=== PATIENT | female | born 1975 | race African-American/Black ===

== ENCOUNTER 2018-08-16 11:22 | Emergency (ER) | payer MEDICAID, OTHER ==
[~2018-08-16] VITALS: Ht 177.8 cm; Wt 104.3 kg
[~2018-08-16 11:22] MED LIST: CYCLOBENZAPRINE10 MG ORAL; IBUPROFEN600 MG ORAL; NKM; ROBAXIN-750750 MG PO
--- NOTE | 2018-08-16 11:30 | NUR ---
ED Nurse Note: Pt came into the ER w/ complaints of sore throat x 4 days. Complaining of 6/10 throat pain. Non radiating. Pt is also complaining of burning feeling in bilateral ears. A + O x4. Ambulatory. Skin warm to touch.
[2018-08-16 11:32] VITALS: BP 105/77
[2018-08-16] MEDS ORDERED: AMOXICILLIN500 MG ORAL (11:45)
[2018-08-16] MEDS ORDERED: IBUPROFEN600 MG ORAL (11:45)
[2018-08-16 11:48] VITALS: BP 120/74
--- NOTE | 2018-08-16 11:49 | NUR ---
ED Nurse Note: Discharge instructions given to pt. Answered all questions. Verbalized understanding. No acute distress noted. ID band removed. Left ER w/ all belongings and w/ a steady gait.
--- NOTE | 2018-08-16 12:39 | Emergency Room Report ---
History of Present Illness General Chief Complaint: Sore Throat Source: Patient Present Illness HPI Patient presents emergency department today complaining of a sore throat. Patient states that she has sore throat for a couple days. She denies any fever chest pain shortness breath but she does complain of subjective fevers and chills. She denies any runny nose cough nausea vomiting or diarrhea. Symptoms noted to be moderate. Patient has had a history of strep throat in the past.No other modifying factors. No other associated signs and symptoms. No other complaints were noted. Allergies: Coded Allergies: No Known Allergies (Unverified , 06/25/16) Patient History Past Medical History: none Past Surgical History: none Pertinent Family History: none Social History: Denies: smoking, alcohol use, drug use Now: No Reviewed Nursing Documentation: PMH: Agreed; PSxH: Agreed Nursing Documentation-PMH Past Medical History: No Stated History Review of Systems All Other Systems: negative except mentioned in HPI Physical Exam Vital Signs Date Time Temp Pulse Resp B/P (MAP) Pulse Ox O2 Delivery O2 Flow Rate FiO2 08/16/18 11:26 98.2 82 20 108/64 96 Room Air Sp02 EP Interpretation: reviewed, normal General Appearance: normal inspection, well appearing, no apparent distress, alert Head: atraumatic Eyes: bilateral eye normal inspection ENT: hearing grossly normal, normal voice, tonsillar swelling, pharyngeal erythema, tonsillar exudate Neck: normal inspection, full range of motion, supple, no bony tend Respiratory: normal inspection, lungs clear, normal breath sounds, no respiratory distress, no retraction, no wheezing Cardiovascular #1: regular rate, rhythm, no edema Gastrointestinal: normal inspection, normal bowel sounds, non tender, soft, no guarding, no hernia Genitourinary: no CVA tenderness Musculoskeletal: normal inspection, back normal, normal range of motion Neurologic: normal inspection, alert, responsive, speech normal Psychiatric: normal inspection, judgement/insight normal, mood/affect normal Skin: normal inspection, normal color, no rash Medical Decision Making Diagnostic Impression: Primary Impression: Sore throat ER Course Patient presents emergency department today complaining of sore throat. Differential considerations include pharyngitis, viral pharyngitis, strep throat , peritonsillar abscess, postnasal drip just to name a few. Patient's exam is consistent with pharyngitis. Patient was given a prescription for antibiotics.Patient is advised to follow up with primary doctor in 2-3 days and return the emergency room for any worsening symptoms and as needed. Last Vital Signs Date Time Temp Pulse Resp B/P (MAP) Pulse Ox O2 Delivery O2 Flow Rate FiO2 08/16/18 11:48 98.0 78 22 120/74 98 Room Air Status: improved Disposition: HOME, SELF-CARE Condition: Stable Scripts Ibuprofen* (MOTRIN*) 600 Mg Tablet 600 MG ORAL Q8H PRN for For Pain, #30 TAB 0 Refills Prov: Jb Tucker MD 08/16/18 Amoxicillin* (AMOXIL*) 500 Mg Capsule 500 MG ORAL THREE TIMES A DAY, #30 CAP Prov: Jb Tucker MD 08/16/18 Referrals: NOT CHOSEN [facility]/,REFERRING (PCP) Patient Instructions: Tonsillitis Jb Tucker MD Aug 16, 2018 12:39
[2018-10-10] MEDS ORDERED: CHLOR-TRIMETON4 MG PO ×2 (21:32)
[2018-10-10] MEDS ORDERED: ROBITUSSIN NIG237 ML PO ×2 (21:32)
[2018-10-10] MEDS ORDERED: AFRIN NASAL SPR30 ML NASAL ×2 (21:32)
[2019-05-12] MEDS ORDERED: IBUPROFEN600 MG ORAL (15:32)
[2019-05-12] MEDS ORDERED: LIDODERM700 M1 TOPIC (15:32)
== END 2018-08-16 11:49 | disposition home or self-care (01) ==
LOC: EMR 11:46
DX: J02.9 Acute pharyngitis, unspecified (principal)
CPT/HCPCS: 99282

== ENCOUNTER 2018-10-10 19:41 | Emergency (ER) | payer MEDICAID ==
[~2018-10-10] VITALS: Ht 177.8 cm; Wt 106.6 kg
[~2018-10-10 19:41] MED LIST changes: +AMOXICILLIN500 MG ORAL
[2018-10-10 20:16] VITALS: BP 113/67
--- NOTE | 2018-10-10 20:17 | NUR ---
ED Nurse Note: pt walked in c/o cough and tightness in chest x 4 days, pt states his father was recently dx TB and was concerned she might have one. pt denies cp/sob/li/nightsweat/chills/fever/loss of appetite. Pt AA&ox4, gcs=15, skin warm and dry, normal skin sx, resp even and unlabored on RA, LS=clear, -n/v/d, ambulates w/ steady gait, will cont monitor. vss.
--- NOTE | 2018-10-10 20:40 | NUR ---
ED Nurse Note: CONTACTED PHARMACY FOR PPD.
--- NOTE | 2018-10-10 20:40 | Emergency Room Report ---
History of Present Illness General Chief Complaint: Flu Like Symptoms Source: Patient Present Illness HPI Patient presents with 4 days of upper respiratory symptoms. She has congestion , sore throats and cough. She has not heard herself wheezing. She's on the second to last day of his azithromycin Z-Lalo. She denies night sweats others weight loss. The cough is nonproductive. Cough not keeping her awake at night. Her father is in the hospital for 2 weeks. The family was recently been told that he has VRE and tuberculosis. Family was advised to throw away clothes they used for visits. The patient last had a skin test when she was a child. No dysuria, diarrhea, chest pain, rashes, joint pain, headaches. Not . Allergies: Coded Allergies: No Known Allergies (Unverified , 10/10/18) Patient History Past Medical History: see triage record Social History: Denies: smoking Social History Narrative with children Last Menstrual Period: 09-18-2018 Now: No Reviewed Nursing Documentation: PMH: Agreed; PSxH: Agreed Nursing Documentation-PMH Past Medical History: No Stated History Review of Systems All Other Systems: negative except mentioned in HPI Physical Exam Vital Signs Date Time Temp Pulse Resp B/P (MAP) Pulse Ox O2 Delivery O2 Flow Rate FiO2 10/10/18 19:53 98.2 115/70 10/10/18 20:12 77 18 Room Air 10/10/18 20:16 100 Sp02 EP Interpretation: reviewed, normal General Appearance: well appearing, no apparent distress, GCS 15 Head: normocephalic Eyes: bilateral eye normal inspection, bilateral eye PERRL ENT: normal voice, TMs + canals normal, moist mucus membranes, pharyngeal erythema, other - Nasal congestion Neck: supple, no meningismus Respiratory: lungs clear, normal breath sounds, other - Occasional cough Cardiovascular #1: regular rate, rhythm Cardiovascular #2: 2+ radial (R) Gastrointestinal: normal inspection, normal bowel sounds, non tender, no mass, non-distended Musculoskeletal: back normal, gait/station normal, normal range of motion Neurologic: alert, oriented x3, grossly normal Psychiatric: mood/affect normal Skin: normal inspection, warm/dry Medical Decision Making Diagnostic Impression: Primary Impression: Upper respiratory infection Qualified Codes: J06.9 - Acute upper respiratory infection, unspecified ER Course Patient presents with upper respiratory symptomatology and being exposed to tuberculosis. Differential includes influenza, bronchitis, viral upper respiratory infection amongst others. Consideration of tuberculosis is there however the presentation is atypical. She's artery on antibiotics at this time. She's not wheezing. A chest x-ray will be obtained and also a skin test will be placed. Patient declines any other treatment at this time. Chest x-ray no infiltrate. Review of records of her father. There is no evidence of tuberculosis. The patient has VRE and Klebsiella pneumonia. Discussed findings with patient. She understands treatment plan. She will have her skin test read by her private doctor in 2 days. Patient stable for outpatient observation and treatment. Chest X-Ray Diagnostic Results Chest X-Ray Diagnostic Results : Chest X-Ray Ordered: Yes # of Views/Limited/Complete: 1 View Indication: Other EP Interpretation: Yes Interpretation: no consolidation, no effusion, no pneumothorax Impression: No acute disease Electronically Signed by: Electronically signed by Mike Macdonald MD Last Vital Signs Date Time Temp Pulse Resp B/P (MAP) Pulse Ox O2 Delivery O2 Flow Rate FiO2 10/10/18 21:34 98.2 75 18 110/60 100 Room Air Status: unchanged Disposition: HOME, SELF-CARE Condition: Stable Scripts Oxymetazoline HCl (Afrin) 15 Ml [place] 2 SPRAY NASAL TWICE A DAY for nasal congestion, #10 ML Prov: Mike Macdonald MD 10/10/18 Dextromethorphan Hb/Doxylamine (ROBITUSSIN NIGHTTIME COUGH DM) 237 Ml Liquid 5 ML PO Q6HR PRN for cough or congestion, #60 ML Prov: Mike Macdonald MD 10/10/18 Chlorpheniramine Maleate (CHLOR-TRIMETON) 4 Mg Tablet 4 MG PO Q6HR PRN for congestion, #10 TAB Prov: Mike Macdonald MD 10/10/18 Mike Macdonald MD Oct 10, 2018 20:40
[2018-10-10] MEDS ORDERED: PPD Tuberculin Skin Test 5TU IDERMAL ONE (20:45)
--- NOTE | 2018-10-10 21:08 | Diagnostic Imaging Report ---
EXAM: XR Chest, 1 View CLINICAL HISTORY: COUGH TECHNIQUE: Frontal view of the chest. COMPARISON: No relevant prior studies available. FINDINGS: Lungs: Unremarkable. No consolidation. Pleural space: Unremarkable. No pneumothorax. Heart: Unremarkable. No cardiomegaly. Mediastinum: Unremarkable. Bones/joints: Unremarkable. IMPRESSION: Normal chest x-ray.
[2018-10-10] MEDS ORDERED: ROBITUSSIN NIG237 ML PO (21:32)
[2018-10-10] MEDS ORDERED: CHLOR-TRIMETON4 MG PO (21:32)
[2018-10-10] MEDS ORDERED: AFRIN NASAL SPR30 ML NASAL (21:32)
[2018-10-10 21:34] VITALS: BP 110/60
--- NOTE | 2018-10-10 21:35 | NUR ---
ED Nurse Note: pt cleared to be d/c per ERMD, pt d/c &aftercare instruction provided w/ prescription, pt education done via discussion and handout, pt advised to follow up with pcp or return to ed if sx worsen or new sx develop, pt verbalized understanding and agrees with plan. pt vss, ambulatory w/ steady gait, left w/ all belongings.
== END 2018-10-10 21:34 | disposition home or self-care (01) ==
LOC: EMR 20:41
DX: J06.9 Acute upper respiratory infection, unspecified (principal); Z20.1 Contact with and (suspected) exposure to tuberculosis
CPT/HCPCS: 71045; 86580; 99283

== ENCOUNTER 2018-12-16 19:33 | Emergency (ER) | payer MEDICAID ==
[~2018-12-16] VITALS: Ht 177.8 cm; Wt 106.6 kg
[~2018-12-16 19:33] MED LIST changes: +AFRIN NASAL SPR30 ML NASAL; +CHLOR-TRIMETON4 MG PO; +ROBITUSSIN NIG237 ML PO
[2018-12-16] MEDS ORDERED: NEOMYCIN-POLYMY10 M1 OT (19:40)
[2018-12-16] MEDS ORDERED: CIPROFLOXACIN500 M2 ORAL (19:40)
--- NOTE | 2018-12-16 19:43 | NUR ---
ED Nurse Note: technical writer @ beside awaiting pt to finish using restroom to perform EKG
[2018-12-16 19:45] VITALS: BP 117/79
--- NOTE | 2018-12-16 19:45 | NUR ---
ED Nurse Note: Pt arrived ambulatory into ED for complaint of left sided chest pain that radiates to shoulder lasting for approximately 3 days. Pt states pain is substernal, feeling like pressure and causing difficulty of breathing. Pt has been taking aspirin q4hrs for discomfort.
[2018-12-16] MEDS: Ketorolac 30mg Inj IV ONE ×2 (20:01→20:18)
[2018-12-16 20:11] LABS: APPEARANCE,URINE CLEAR; BILIRUBIN, URINE NEGATIVE (NEGATIVE); COLOR,URINE PALE YELLOW; GLUCOSE, URINE (UA) NEGATIVE (NEGATIVE); KETONES,URINE NEGATIVE (NEGATIVE); LEUKOCYTE ESTERASE ,URINE NEGATIVE (NEGATIVE); NITRITE,URINE NEGATIVE (NEGATIVE); PH,URINE 6.5 (4.5-8.0); PROTEIN,URINE NEGATIVE (NEGATIVE); UROBILINOGEN,URINE NORMAL MG/DL (0.0-1.0)
--- NOTE | 2018-12-16 20:14 | Emergency Room Report ---
History of Present Illness General Chief Complaint: Chest Pain Source: Patient Present Illness HPI Patient presents with left-sided posterior chest pain rating up to her shoulder. This been going on for 3 days. She's been taking aspirin every 4 hours. She feels nauseated at this time. There is no ringing in her ears. It radiates somewhat anteriorly and up into the shoulder. She denies any cough or shortness of breath. It's pleuritic and positional. She also feels hot flashes. She reports pain 2/10 at this time. She was seen 2 weeks ago and prescribed ciprofloxacin. She is completed this antibiotic. Her physician suggested this might be an upper respiratory infection related to allergies. The patient denies any calf pain or edema. She's not taking control. She does not smoke. There is no diabetes or hypertension and no family history of early cardiac disease. No vomiting or change in bowels. No dysuria or rashes. No other medications aside from the aspirin. Father 12/05 - was in Hospice. Very sad over loss. Seen 10/10 with concern over VRE and Tb exposure. 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 Last Menstrual Period: 12/08/18 Now: No Reviewed Nursing Documentation: PMH: Agreed; PSxH: Agreed Nursing Documentation-PMH Past Medical History: No Stated History Review of Systems All Other Systems: negative except mentioned in HPI Physical Exam Vital Signs Date Time Temp Pulse Resp B/P (MAP) Pulse Ox O2 Delivery O2 Flow Rate FiO2 12/16/18 19:36 97.7 87 18 117/79 (92) 99 Room Air Sp02 EP Interpretation: reviewed, normal General Appearance: well appearing, no apparent distress, GCS 15 Head: normocephalic Eyes: bilateral eye normal inspection, bilateral eye PERRL ENT: moist mucus membranes Neck: supple Respiratory: lungs clear, normal breath sounds, other - No anterior chest wall tenderness. Muscle spasm and pain retreated by palpation left medial scapular muscle groups Cardiovascular #1: regular rate, rhythm, no edema Cardiovascular #2: 2+ radial (R) Gastrointestinal: normal inspection, normal bowel sounds, non tender, no mass, non-distended, overweight Musculoskeletal: back normal - see chest, gait/station normal, normal range of motion, no calf tenderness, Nicole's Sign negative Neurologic: alert, oriented x3, grossly normal Psychiatric: anxious Skin: normal inspection, warm/dry Medical Decision Making Diagnostic Impression: Primary Impression: Muscle spasm Additional Impressions: Chest pain Qualified Codes: R07.89 - Other chest pain Grief reaction Leukocytosis Qualified Codes: D72.828 - Other elevated white blood cell count ER Course Patient presents with left-sided posterior chest pain. Differential includes PE , acute myocardial infarction, pleurisy, muscle spasm, viral syndrome amongst others. Patient be evaluated with EKG, chest x-ray and labs. Based on vital signs pulmonary embolus is extremely unlikely. Also cardiac risk factors are low. EKG is normal sinus rhythm with normal EKG rate 67. Chest x-ray clear no infiltrates. Labs with leukocytosis no left shift. CMP normal. Salicylate 9.0. Patient refused Toradol. Reconsidered medication. Motrin given. Discussed results with patient. She is relieved about these results. She is quite tearful about the loss of her father. Discussed the possibility of seeking great support. Also discussed leukocytosis and the need for follow-up with her own doctor. Patient stable for outpatient observation and treatment. Laboratory Tests Test 12/16/18 19:49 12/16/18 20:13 Urine Color Pale yellow Urine Appearance Clear Urine pH 6.5 (4.5-8.0) Urine Specific [place] 1.015 (1.005-1.035) Urine Protein Negative (NEGATIVE) Urine Glucose (UA) Negative (NEGATIVE) Urine Ketones Negative (NEGATIVE) Urine Blood 1+ (NEGATIVE) H Urine Nitrite Negative (NEGATIVE) Urine Bilirubin Negative (NEGATIVE) Urine Urobilinogen Normal MG/DL (0.0-1.0) Urine Leukocyte Esterase Negative (NEGATIVE) Urine RBC 2-4 /HPF (0 - 2) H Urine WBC 0-2 /HPF (0 - 2) Urine Squamous Epithelial Cells Few /LPF (NONE/OCC) Urine Bacteria Few /HPF (NONE) Urine HCG, Qualitative Negative (NEGATIVE) White Blood Count 12.9 K/UL (4.8-10.8) H Red Blood Count 4.55 M/UL (4.20-5.40) Hemoglobin 13.0 G/DL (12.0-16.0) Hematocrit 38.1 % (37.0-47.0) Mean Corpuscular Volume 84 FL (80-99) Mean Corpuscular Hemoglobin 28.6 PG (27.0-31.0) Mean Corpuscular Hemoglobin Concent 34.2 G/DL (32.0-36.0) Red Cell Distribution Width 11.6 % (11.6-14.8) Platelet Count 257 K/UL (150-450) Mean Platelet Volume 6.8 FL (6.5-10.1) Neutrophils (%) (Auto) 60.7 % (45.0-75.0) Lymphocytes (%) (Auto) 30.6 % (20.0-45.0) Monocytes (%) (Auto) 5.4 % (1.0-10.0) Eosinophils (%) (Auto) 1.5 % (0.0-3.0) Basophils (%) (Auto) 1.8 % (0.0-2.0) Prothrombin Time 10.0 SEC (9.30-11.50) Prothrombin Time INR 0.9 (0.9-1.1) PTT 27 SEC (23-33) Sodium Level 138 MMOL/L (136-145) Potassium Level 4.2 MMOL/L (3.5-5.1) Chloride Level 104 MMOL/L (98-107) Carbon Dioxide Level 26 MMOL/L (21-32) Anion Gap 8 mmol/L (5-15) Blood Urea Nitrogen 18 mg/dL (7-18) Creatinine 1.0 MG/DL (0.55-1.30) Estimate Glomerular Filtration Rate > 60 mL/min (>60) Glucose Level 102 MG/DL (74-106) Calcium Level 8.9 MG/DL (8.5-10.1) Total Bilirubin 0.2 MG/DL (0.2-1.0) Aspartate Amino Transferase (AST) 10 U/L (15-37) L Alanine Aminotransferase (ALT) 20 U/L (12-78) Alkaline Phosphatase 78 U/L (46-116) Total Creatine Kinase 42 U/L (26-308) Troponin I 0.000 ng/mL (0.000-0.056) Total Protein 7.2 G/DL (6.4-8.2) Albumin 3.6 G/DL (3.4-5.0) Globulin 3.6 g/dL Albumin/Globulin Ratio 1.0 (1.0-2.7) Salicylates Level 9.0 ug/mL (2.8-20) EKG Diagnostic Results Rate: normal Rhythm: NSR ST Segments: no acute changes Rhythm Strip Diag. Results EP Interpretation: yes Rhythm: NSR, no PVC's, no ectopy Chest X-Ray Diagnostic Results Chest X-Ray Diagnostic Results : Chest X-Ray Ordered: Yes # of Views/Limited/Complete: 1 View Indication: Chest Pain EP Interpretation: Yes Interpretation: no consolidation, no effusion, no pneumothorax Impression: No acute disease Electronically Signed by: Electronically signed by Mike Macdonald MD Last Vital Signs Date Time Temp Pulse Resp B/P (MAP) Pulse Ox O2 Delivery O2 Flow Rate FiO2 12/16/18 22:28 98.3 79 14 128/79 99 Room Air Status: improved Disposition: HOME, SELF-CARE Condition: Improved Scripts Methocarbamol* (ROBAXIN*) 500 Mg Tablet 500 MG PO TID, #10 TAB 0 Refills Prov: Mike Macdonald MD 12/16/18 Tramadol Hcl* (ULTRAM*) 50 Mg Tablet 50 MG ORAL Q6H PRN for For Pain, #10 TAB 0 Refills Prov: Mike Macdonald MD 12/16/18 Ibuprofen* (MOTRIN*) 600 Mg Tablet 600 MG ORAL Q6H PRN for For Pain, #20 TAB 0 Refills Prov: Mike Macdonald MD 12/16/18 Referrals: [facility],REFERRING (PCP) Mike Macdonald MD December 16, 2018 20:14
--- NOTE | 2018-12-16 20:18 | NUR ---
ED Nurse Note:ED Nurse Note: Pt refused toradol last minute. 0.5 ml drawn in syringe and vial wasted and discarded. Witnessed by MOY Jordan.
[2018-12-16 20:34] LABS: BASOPHILS % (AUTO) 1.8 % (0.0-2.0); EOSINOPHILS % (AUTO) 1.5 % (0.0-3.0); HEMATOCRIT 38.1 % (37.0-47.0); LYMPHOCYTES % (AUTO) 30.6 % (20.0-45.0); MEAN CORPUSCULAR VOLUME 84 FL (80-99); MONOCYTES % (AUTO) 5.4 % (1.0-10.0); NEUTROPHILS % (AUTO) 60.7 % (45.0-75.0); PLATELET COUNT 257 K/UL (150-450); RED BLOOD COUNT 4.55 M/UL (4.20-5.40); RED CELL DISTRIBUTION WIDTH 11.6 % (11.6-14.8); WHITE BLOOD COUNT 12.9 K/UL (4.8-10.8)
[2018-12-16 20:41] LABS: INR 0.9 (0.9-1.1)
[2018-12-16 20:51] LABS: ANION GAP 8 mmol/L (5-15); BLOOD UREA NITROGEN 18 mg/dL (7-18); CALCIUM 8.9 MG/DL (8.5-10.1); CARBON DIOXIDE 26 MMOL/L (21-32); CHLORIDE 104 MMOL/L (98-107); POTASSIUM 4.2 MMOL/L (3.5-5.1); SODIUM 138 MMOL/L (136-145)
[2018-12-16 20:56] LABS: ALANINE AMINOTRANSFERASE 20 U/L (12-78); ALBUMIN 3.6 G/DL (3.4-5.0); ALKALINE PHOSPHATASE 78 U/L (46-116); ASPARTATE AMINO TRANSFERASE 10 U/L (15-37); BILIRUBIN,TOTAL 0.2 MG/DL (0.2-1.0); CREATINE KINASE 42 U/L (26-308)
--- NOTE | 2018-12-16 21:40 | NUR ---
ED Nurse Note: Pt resting comfortably. Showing no signs of acute distress. VSS. Will continue to monitor.
[2018-12-16] MEDS ORDERED: ROBAXIN500 MG PO ×2 (22:15)
[2018-12-16] MEDS ORDERED: TRAMADOL HCL50 MG ORAL (22:15)
[2018-12-16] MEDS ORDERED: IBUPROFEN600 MG ORAL ×2 (22:15)
[2018-12-16 22:28] VITALS: BP 128/79
--- NOTE | 2018-12-16 22:30 | NUR ---
ED Nurse Note: Pt cleared by . Pt A/Ox4, showing no signs of acute distress. VSS. Discharge paperwork and prescrptions provided. Pt verbalized understanding of all instructions. All belongings taken with pt. ID band and IV removed. Pt ambulted out of ED with steady gait.
--- NOTE | 2018-12-17 12:06 | Diagnostic Imaging Report ---
Indication: Chest pain Comparison: 10/10/2018 A single view chest radiograph was obtained. Findings: Cardiomediastinal appearance is within normal limits for age. The lungs are clear. Pulmonary vascularity is appropriate. The diaphragmatic contour is smooth and costophrenic angles are sharp. No pleural effusions are identified. The bones are unremarkable. Impression: No acute findings
--- NOTE | 2018-12-18 15:28 | Cardiology Report ---
APPROVED REPORT EKG Measurement Heart [id number] Normal sinus rhythm Normal ECG
[2019-05-12] MEDS ORDERED: IBUPROFEN600 MG ORAL (15:32)
[2019-05-12] MEDS ORDERED: LIDODERM700 M1 TOPIC (15:32)
== END 2018-12-16 22:28 | disposition home or self-care (01) ==
LOC: EMR 19:48
DX: R07.89 Other chest pain (principal); F43.20 Adjustment disorder, unspecified; D72.828 Other elevated white blood cell count; M62.838 Other muscle spasm; R11.0 Nausea
CPT/HCPCS: 36415; 71045; 80053; 80329; 81003; 81025; 82550; 84484; 85025; 85610; 85730; 93005; 99283

== ENCOUNTER 2019-03-18 12:54 | Emergency (ER) | payer MEDICAID, OTHER ==
[~2019-03-18] VITALS: Ht 177.8 cm; Wt 105.2 kg
[~2019-03-18 12:54] MED LIST changes: +CIPROFLOXACIN500 M2 ORAL; +NEOMYCIN-POLYMY10 M1 OT; +ROBAXIN500 MG PO; +TRAMADOL HCL50 MG ORAL
--- NOTE | 2019-03-18 13:20 | NUR ---
ED Nurse Note: Patient presents to ER due to right sole pain, medial aspect x 3 weeks. Patient usually wear flat sandals. Patient had long hiking ~ 7miles 4 weeks ago. Cap refill < 3 sec. + dorsal pedis pulse palated on right foot. No swelling or redness noted. Patient ambulated to the room with steady gait.
--- NOTE | 2019-03-18 13:28 | Emergency Room Report ---
History of Present Illness General Chief Complaint: Lower Extremity Injury Source: Patient Present Illness HPI 44-year-old female with no significant past medical history here complaining of 3 weeks of pain without any injury in the right foot. Patient reports that she used to wear a lot of high heels however has switched to flat shoes recently. Patient reports that she is often on her feet a lot during the day and feels the pain mostly when she wakes up in the morning and the pain gets better upon walking. At this time rates the pain 3 out of 10 with radiation to toes denies tingling or numbness. Denies any direct fall or injury. Denies calf tenderness , chest pain, shortness of breath, palpitation, and other associated symptoms. Has not taken medication for pain relief. Allergies: Coded Allergies: No Known Allergies (Unverified , 10/10/18) Patient History Past Medical History: see triage record Past Surgical History: unable to obtain Pertinent Family History: none Last Menstrual Period: 03/01/19 Now: No Immunizations: UTD Reviewed Nursing Documentation: PMH: Agreed; PSxH: Agreed Nursing Documentation-PMH Past Medical History: No Stated History Review of Systems All Other Systems: negative except mentioned in HPI Physical Exam Vital Signs Date Time Temp Pulse Resp B/P (MAP) Pulse Ox O2 Delivery O2 Flow Rate FiO2 03/18/19 12:59 98.2 81 18 113/61 (78) 96 Room Air Sp02 EP Interpretation: reviewed, normal General Appearance: no apparent distress, alert, GCS 15, non-toxic Head: normocephalic, atraumatic Eyes: bilateral eye normal inspection, bilateral eye PERRL ENT: hearing grossly normal, normal pharynx, no angioedema, normal voice Neck: full range of motion, supple/symm/no masses Respiratory: chest non-tender, lungs clear, normal breath sounds, speaking full sentences Cardiovascular #1: normal inspection, regular rate, rhythm, no murmur Cardiovascular #2: 2+ dorsalis pedis (R), 2+ dorsalis pedis (L) Gastrointestinal: normal bowel sounds, non tender, soft, non-distended, no guarding, no rebound Genitourinary: no CVA tenderness Musculoskeletal: normal inspection, back normal, digits/nails normal, gait/ station normal, non-tender Neurologic: alert, oriented x3, responsive, motor strength/tone normal, sensory intact, speech normal Psychiatric: judgement/insight normal, memory normal, mood/affect normal, no suicidal/homicidal ideation Skin: no rash Lymphatic: no adenopathy Medical Decision Making PA Attestation All my diagnosis and treatment plans were reviewed ad discussed with my supervising physician Dr. Martines Diagnostic Impression: Primary Impression: Plantar fasciitis of right foot ER Course 44-year-old female with no significant past medical history here complaining of 3 weeks of pain without any injury in the right foot. Patient reports that she used to wear a lot of high heels however has switched to flat shoes recently. Patient reports that she is often on her feet a lot during the day and feels the pain mostly when she wakes up in the morning and the pain gets better upon walking. At this time rates the pain 3 out of 10 with radiation to toes denies tingling or numbness. Denies any direct fall or injury. Denies calf tenderness , chest pain, shortness of breath, palpitation, and other associated symptoms. Has not taken medication for pain relief. Ddx considered but are not limited to: foot fracture, foot sprain, foot contusion, foot strain, spare, fasciitis Vital signs: are WNL, pt. is afebrile H&PE are most consistent with: Plantar fasciitis ORDERS: foot Xray , Voltaren gel, Motrin ED INTERVENTIONS: None required at this time. DISCHARGE: At this time pt. is stable for d/c to home. Will provide printed patient care instructions, and any necessary prescriptions. Care plan and follow up instructions have been discussed with the patient prior to discharge. I advised the patient to follow-up with her primary care provider for referral to clock mechanic if needed symptoms return to the emergency room Other X-Ray Diagnostic Results Other X-Ray Diagnostic Results : X-Ray ordered: Right foot # of Views/Limited Vs Complete: 3 View Indication: Pain EP Interpretation: Yes JAMMIE Xray: Interpretation reviewed, by supervising MD, and agrees with findings. Interpretation: no dislocation, no soft tissue swelling, no fractures Impression: No acute disease Electronically Signed by: Vishal Frey PA-C Last Vital Signs Date Time Temp Pulse Resp B/P (MAP) Pulse Ox O2 Delivery O2 Flow Rate FiO2 03/18/19 12:59 98.2 81 18 113/61 (78) 96 Room Air Disposition: HOME, SELF-CARE Condition: Stable Scripts Diclofenac Sodium (VOLTAREN) 100 Gm Gel..gram. 2 GM TP TID, #100 GM Prov: Vishal Payne 03/18/19 Ibuprofen* (MOTRIN*) 600 Mg Tablet 600 MG ORAL Q8H PRN for For Pain, #30 TAB 0 Refills Prov: Vishal Payne 03/18/19 Patient Instructions: Plantar Fasciitis Vishal Payne Mar 18, 2019 13:28
[2019-03-18] MEDS ORDERED: IBUPROFEN600 MG ORAL (13:29)
[2019-03-18] MEDS ORDERED: VOLTAREN100 G1 TP (13:30)
[2019-03-18 13:38] VITALS: BP 121/71
--- NOTE | 2019-03-18 13:39 | NUR ---
ER DISCHARGE NOTE: Patient is cleared to be discharged per ERMD, pt is aox4, on room air, with stable vital signs. pt was given dc and prescription instructions, pt was able to verbalize understanding, pt id band removed without complications. pt is able to ambulate with steady gait. pt took all belongings.
--- NOTE | 2019-03-18 15:51 | Diagnostic Imaging Report ---
Indication: Right foot pain Technique: 3 views right foot Comparison: none Findings: No acute fractures. No dislocations. The joint spaces are preserved. Impression: Negative
== END 2019-03-18 14:00 | disposition home or self-care (01) ==
LOC: EMR 13:31
DX: M72.2 Plantar fascial fibromatosis (principal)
CPT/HCPCS: 99283

== ENCOUNTER 2019-04-29 13:45 | Emergency (ER) | payer MEDICAID, OTHER ==
[~2019-04-29] VITALS: Ht 177.8 cm; Wt 108.0 kg
[~2019-04-29 13:45] MED LIST changes: +VOLTAREN100 G1 TP
[2019-04-29 14:02] VITALS: BP 117/66
[2019-04-29] MEDS ORDERED: NKM (14:05)
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
[2019-04-29] MEDS ORDERED: Ketorolac 60mg Inj IM ONE (15:15)
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
--- NOTE | 2019-04-29 17:34 | Diagnostic Imaging Report ---
Indication: Head trauma headache Technique: Contiguous 5 mm thick transaxial imaging of the head obtained in a Siemens Sensation [address] scanner. Soft tissue and bone windows generated. Automatic Exposure Control was utilized. Total Dose length Product (DLP): [address] Dose Index Volume (CTDIvol): 62.7 mGy Comparison: none Findings: The size and configuration of the cortical sulci, basal cisterns, and ventricles are within normal limits for age. There is no mass effect, midline shift, or edema identified. Cystic focus in the left basal ganglia region noted likely a prominent perivascular space. There is no evidence of acute hemorrhage or abnormal intra-axial or extra-axial fluid collections. The bones and soft tissues are unremarkable. Impression: No mass effect, edema or acute bleed. [facility] has communicated the preliminary results to the Emergency Department. Their findings are largely concordant with this report. The CT scanner at [facility] is accredited by the [employer] and the scans are performed using dose optimization techniques as appropriate to a performed exam including Automatic Exposure control.
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
[2019-04-29] MEDS ORDERED: IBUPROFEN600 MG ORAL (18:15)
[2019-04-29] MEDS ORDERED: CYCLOBENZAPRINE10 MG ORAL ×2 (18:15)
[2019-04-29 18:20] VITALS: BP 117/66
--- NOTE | 2019-04-29 18:21 | NUR ---
ER DISCHARGE NOTE: Patient is cleared to be discharged per ERMD DR DOUGLAS, pt is aox4, on room air, with stable vital signs. pt was given dc and prescription instructions, pt was able to verbalize understanding, pt id band removed without complications. pt is able to ambulate with steady gait. pt took all belongings.
[2019-05-12] MEDS ORDERED: LIDODERM700 M1 TOPIC (15:32)
[2019-05-12] MEDS ORDERED: IBUPROFEN600 MG ORAL (15:32)
== END 2019-04-29 18:20 | disposition home or self-care (01) ==
LOC: EMR 16:00
DX: S13.4XXA Sprain of ligaments of cervical spine, initial encounter (principal); R51 Headache; R42 Dizziness and giddiness; V43.52XA Car driver injured in collision with other type car in traffic accident, initial encounter; Y92.410 Unspecified street and highway as the place of occurrence of the external cause
CPT/HCPCS: 70450; 72125; 96372; Z7502; 99284